=== PATIENT | female | born 1985 | race Asian ===

== ENCOUNTER → 2016-12-04 | Outpatient (CLI) | payer OTHER ==
[~2016-12-04] MED LIST: IBUP600T26 PO; IBUP80TA PO; LORT5TAB PO
[2016-12-04 15:50] LABS: URIC ACID 3.2 MG/DL (2.6-6.0)
== END ==
LOC: M LAB 14:48
PROVIDERS: ATTEND Family Medicine
DX: M25.561 Pain in right knee (principal)

== ENCOUNTER → 2016-12-07 | Outpatient (CLI) | payer OTHER ==
--- NOTE | 2016-12-08 01:42 | REP ---
Clinical: Pain . Technique: AP, lateral, bilateral oblique and sunrise views right knee . Findings: The osseous structures and joint spaces are intact and normal. There is no evidence for acute fracture or dislocation. [place] view cannot exclude subtle lateral subluxation to the patella. No joint effusion is appreciated. Surrounding soft tissues are unremarkable. No subcutaneous emphysema or radiodense foreign body. Impression: No acute fracture or dislocation. Question mild patellar subluxation. Signed by Dorian Mcdowell MD 12/08/2016 01:34 A
== END ==
LOC: M RAD 14:12
PROVIDERS: ATTEND Family Medicine
DX: M25.561 Pain in right knee (principal)

== ENCOUNTER → 2017-04-26 | Outpatient (CLI) | payer OTHER | LOC: M LAB 10:13 | PROVIDERS: ATTEND Family Medicine | DX: E55.9 Vitamin D deficiency, unspecified (principal) ==